=== PATIENT | male | born 1970 | race Caucasian/White ===

== ENCOUNTER 2018-10-07 12:13 | Emergency (ER) | payer MEDICAID ==
[~2018-10-07] VITALS: Ht 185.4 cm; Wt 92.9 kg
[~2018-10-07 12:13] MED LIST: NO HOME MEDS; [UNRECOGNIZED DRUG - OTHER]
[2018-10-07] MEDS ORDERED: ibuprofen tablet 400 MG TABLET PO ONE (12:35)
[2018-10-07 14:00] VITALS: BP 102/68
== END 2018-10-07 14:01 | disposition home or self-care (01) ==
LOC: ER 12:13
DX: S60.221A Contusion of right hand, initial encounter (principal); S80.02XA Contusion of left knee, initial encounter; F17.200 Nicotine dependence, unspecified, uncomplicated; F15.90 Other stimulant use, unspecified, uncomplicated; Z91.013 Allergy to seafood; Z79.899 Other long term (current) drug therapy; W22.8XXA Striking against or struck by other objects, initial encounter; Y93.89 Activity, other specified; Y92.89 Other specified places as the place of occurrence of the external cause; Y99.8 Other external cause status
CPT/HCPCS: 73130; 73564; 99283

== ENCOUNTER 2018-10-15 13:15 | Emergency (ER) | payer MEDICAID ==
[~2018-10-15] VITALS: Ht 185.4 cm; Wt 92.8 kg
[2018-10-15 13:16] VITALS: BP 120/77
--- NOTE | 2018-10-15 15:20 | NUR ---
PT FEET SOAKED WARM WATER BETADINE, PT DRIED FEET AND GIVEN CLEAN DRY SOCKS INSTRUCTED NOT TO WEAR BOOTS FOR AWHILE.
== END 2018-10-15 15:21 | disposition home or self-care (01) ==
LOC: ER 13:17
DX: S90.212A Contusion of left great toe with damage to nail, initial encounter (principal); S90.211A Contusion of right great toe with damage to nail, initial encounter; M79.671 Pain in right foot; M79.672 Pain in left foot; G89.29 Other chronic pain; F15.90 Other stimulant use, unspecified, uncomplicated; Z91.013 Allergy to seafood; Z79.899 Other long term (current) drug therapy; X58.XXXA Exposure to other specified factors, initial encounter; Y93.89 Activity, other specified; Y92.89 Other specified places as the place of occurrence of the external cause; Y99.8 Other external cause status
CPT/HCPCS: 99281

== ENCOUNTER 2018-12-31 14:30 | Emergency (ER) | payer MEDICAID ==
[~2018-12-31] VITALS: Ht 185.4 cm; Wt 90.0 kg
[2018-12-31 14:59] VITALS: BP 103/56
[2018-12-31] MEDS ORDERED: DOXY100C43 PO (16:12)
== END 2018-12-31 16:46 | disposition home or self-care (01) ==
LOC: ER 14:31
DX: L03.115 Cellulitis of right lower limb (principal); G89.29 Other chronic pain; F17.200 Nicotine dependence, unspecified, uncomplicated; F15.90 Other stimulant use, unspecified, uncomplicated; Z91.013 Allergy to seafood; Z79.899 Other long term (current) drug therapy
CPT/HCPCS: 99283

== ENCOUNTER 2019-01-14 17:54 | Emergency (ER) | payer MEDICAID ==
[~2019-01-14] VITALS: Ht 185.4 cm; Wt 82.0 kg
[2019-01-14 18:22] LABS: CLARITY,URINE TURBID (Clear); COLOR,URINE BROWN (Yellow); GLUCOSE, URINE NEGATIVE (Neg); KETONES,URINE TRACE mg/dl (Neg); LEUKOCYTE ESTERASE ,URINE TRACE (Neg); OCCULT BLOOD,URINE LARGE (Neg); PROTEIN,URINE 100 mg/dl (Neg)
[2019-01-14 18:26] LABS: UA COLLECTION TYPE NON-SPECIFIED
[2019-01-14 18:32] LABS: NITRITES, URINE NEGATIVE (Neg)
[2019-01-14] MEDS ORDERED: HYDROcodone/acetaminophen 5mg/325mg tablet PO ONE (18:45)
[2019-01-14] MEDS ORDERED: ondansetron 4mg rapidly disintigrating tab PO ONE (18:45)
[2019-01-14 18:57] LABS: BACTERIA,URINE 1+ /HPF (Neg); RBC,URINE TNTC /HPF (0-2); WBC,URINE 0-4 /HPF (0-4)
[2019-01-14 18:58] LABS: MUCUS STRANDS MODERATE /LPF (Neg); SQUAMOUS EPITHELIAL CELL,UR NONE SEEN /LPF (FEW)
[2019-01-14 19:06] LABS: BASOPHILS # (AUTO) 0.1 X10'3 (0-0.2); BASOPHILS % (AUTO) 1.1 % (0-1); EOSINOPHILS # (AUTO) 0.1 X10'3 (0-0.9); EOSINOPHILS % (AUTO) 1.8 % (0-6); HEMATOCRIT 39.2 % (42.0-52.0); HEMOGLOBIN 13.2 g/dl (14.0-17.9); LYMPHOCYTES # (AUTO) 2.1 X10'3 (1.1-4.8); LYMPHOCYTES % (AUTO) 25.9 % (21-51); MEAN CORPUSCULAR HEMOGLOBIN 29.8 PG (27.0-31.0); MEAN CORPUSCULAR HGB CONC 33.7 g/dL (33.0-36.5); MEAN CORPUSCULAR VOLUME 88.4 FL (78-98); MEAN PLATELET VOLUME 7.8 FL (7.4-10.4); MONOCYTES # (AUTO) 0.6 X10'3 (0-0.9); MONOCYTES % (AUTO) 7.4 % (2-12); NEUTROPHILS # (AUTO) 5.1 X10'3 (1.8-7.7); NEUTROPHILS % (AUTO) 63.8 % (42-75); PLATELET COUNT 246 X10'3 (140-440); RED BLOOD COUNT 4.44 X10'6 (4.70-6.10); RED CELL DISTRIBUTION WIDTH 13.3 % (11.5-14.5); WHITE BLOOD COUNT 8.1 X10'3 (4.5-11.0)
[2019-01-14 19:20] LABS: ALANINE AMINOTRANSFERASE 27 U/L (12-78); ALBUMIN 3.4 G/DL (3.4-5.0); ALKALINE PHOSPHATASE 63 IU/L (46-116); ANION GAP 6 (8-16); ASPARTATE AMINO TRANSFERASE 18 U/L (10-37); BILIRUBIN,TOTAL 0.5 MG/DL (0.1-1.0); BLOOD UREA NITROGEN 14 MG/DL (7-18); BUN/CREATININE RATIO 15.6 (5.4-32.0); CHLORIDE 106 MMOL/L (99-107); GLUCOSE 91 MG/DL (70-104); POTASSIUM 4.4 MMOL/L (3.5-5.1); SODIUM 140 MMOL/L (135-145); TOTAL CARBON DIOXIDE 28.1 MMOL/L (24-32); TOTAL PROTEIN 6.7 G/DL (6.4-8.2); eGFR 90 ML/MIN
[2019-01-14 20:01] LABS: URINE AMPHETAMINE SCREEN POSITIVE (Neg); URINE BARBITUATE SCREEN NEGATIVE (Neg); URINE BENZODIAZEPINES SCREEN NEGATIVE (Neg); URINE CANNABINOID SCREEN NEGATIVE (Neg); URINE COCAINE SCREEN NEGATIVE (Neg); URINE METHADONE SCREEN NEGATIVE (Neg); URINE OPIATE SCREEN NEGATIVE (Neg); URINE PHENCYCLIDINE SCREEN NEGATIVE (Neg)
[2019-01-14] MEDS ORDERED: ONDA8TAB6 PO (20:16)
[2019-01-14] MEDS ORDERED: FLO0.4C PO (20:16)
[2019-01-14] MEDS ORDERED: HYDR-3965 PO (20:16)
[2019-01-14 20:25] VITALS: BP 113/67
== END 2019-01-14 20:28 | disposition home or self-care (01) ==
LOC: ER 17:55
DX: N20.0 Calculus of kidney (principal); G89.29 Other chronic pain; F15.90 Other stimulant use, unspecified, uncomplicated; Z91.013 Allergy to seafood; Z79.899 Other long term (current) drug therapy
CPT/HCPCS: 36415; 74176; 80053; 80305; 81001; 85025; 87088; 99284

== ENCOUNTER 2019-01-21 17:47 | Emergency (ER) | payer MEDICAID ==
[~2019-01-21] VITALS: Ht 185.4 cm; Wt 86.4 kg
[~2019-01-21 17:47] MED LIST changes: +FLO0.4C PO; +HYDR-3965 PO; +ONDA8TAB6 PO
[2019-01-21 18:29] LABS: BASOPHILS # (AUTO) 0.1 X10'3 (0-0.2); BASOPHILS % (AUTO) 0.8 % (0-1); EOSINOPHILS % (AUTO) 0.5 % (0-6); HEMOGLOBIN 13.8 g/dl (14.0-17.9); LYMPHOCYTES # (AUTO) 1.7 X10'3 (1.1-4.8); LYMPHOCYTES % (AUTO) 21.2 % (21-51); MEAN CORPUSCULAR HGB CONC 33.5 g/dL (33.0-36.5); MEAN CORPUSCULAR VOLUME 89.4 FL (78-98); MEAN PLATELET VOLUME 8.6 FL (7.4-10.4); MONOCYTES # (AUTO) 0.6 X10'3 (0-0.9); MONOCYTES % (AUTO) 7.3 % (2-12); NEUTROPHILS # (AUTO) 5.8 X10'3 (1.8-7.7); NEUTROPHILS % (AUTO) 70.2 % (42-75); PLATELET COUNT 219 X10'3 (140-440); RED BLOOD COUNT 4.59 X10'6 (4.70-6.10); RED CELL DISTRIBUTION WIDTH 13.3 % (11.5-14.5); WHITE BLOOD COUNT 8.2 X10'3 (4.5-11.0)
[2019-01-21] MEDS ORDERED: ketorolac trometh. 30mg/ml inj. IV ONE (18:30)
[2019-01-21] MEDS ORDERED: normal saline 1000ML IV soln IVB ONE (18:30)
[2019-01-21 18:37] LABS: ALANINE AMINOTRANSFERASE 33 U/L (12-78); ALBUMIN 3.6 G/DL (3.4-5.0); ALKALINE PHOSPHATASE 69 IU/L (46-116); ANION GAP 9 (8-16); ASPARTATE AMINO TRANSFERASE 26 U/L (10-37); BILIRUBIN,TOTAL 0.3 MG/DL (0.1-1.0); BLOOD UREA NITROGEN 15 MG/DL (7-18); BUN/CREATININE RATIO 17.9 (5.4-32.0); CALCIUM 9.3 MG/DL (8.5-10.1); CHLORIDE 110 MMOL/L (99-107); CREATININE 0.84 MG/DL (0.60-1.10); GLUCOSE 106 MG/DL (70-104); SODIUM 146 MMOL/L (135-145); TOTAL CARBON DIOXIDE 27.3 MMOL/L (24-32); TOTAL PROTEIN 7.2 G/DL (6.4-8.2); eGFR > 90 ML/MIN
[2019-01-21 19:05] LABS: CLARITY,URINE CLOUDY (Clear); COLOR,URINE YELLOW (Yellow); GLUCOSE, URINE NEGATIVE (Neg); KETONES,URINE NEGATIVE (Neg); LEUKOCYTE ESTERASE ,URINE NEGATIVE (Neg); NITRITES, URINE NEGATIVE (Neg); OCCULT BLOOD,URINE MODERATE (Neg); PH,URINE 7.5 (4.8-8.0); PROTEIN,URINE NEGATIVE (Neg); UROBILINOGEN,URINE 0.2 E.U/dL (0.2-1.0)
[2019-01-21 19:10] LABS: UA COLLECTION TYPE CLN CATCH MIDSTREAM
[2019-01-21 19:26] LABS: WBC,URINE NONE SEEN /HPF (0-4)
[2019-01-21 19:27] LABS: AMORPHOUS PHOSPHATES 2+; BACTERIA,URINE NONE SEEN /HPF (Neg); MUCUS STRANDS NONE SEEN /LPF (Neg); SQUAMOUS EPITHELIAL CELL,UR NONE SEEN /LPF (FEW)
[2019-01-21] MEDS ORDERED: KETO10TA2 PO (20:07)
[2019-01-21] MEDS ORDERED: FLO0.4C PO (20:07)
[2019-01-21 20:27] VITALS: BP 124/74
== END 2019-01-21 20:14 | disposition home or self-care (01) ==
LOC: ER 17:47
DX: N20.0 Calculus of kidney (principal); G89.29 Other chronic pain; F15.90 Other stimulant use, unspecified, uncomplicated; Z91.013 Allergy to seafood; Z79.899 Other long term (current) drug therapy
CPT/HCPCS: 36415; 74176; 80053; 81001; 85025; 85610; 96374; 99284; J1885; J7030

== ENCOUNTER 2019-01-29 11:46 | Emergency (ER) | payer MEDICAID ==
[~2019-01-29] VITALS: Ht 185.4 cm; Wt 64.0 kg
[~2019-01-29 11:46] MED LIST changes: +KETO10TA2 PO
[2019-01-29 12:21] VITALS: BP 103/69
[2019-01-29] MEDS ORDERED: HYDROcodone/acetaminophen 10/325mg tab PO ONE (14:05)
[2019-01-29] MEDS ORDERED: PENI500T2 PO (14:12)
[2019-01-29] MEDS ORDERED: IBUP-1984 PO (14:12)
== END 2019-01-29 14:23 | disposition home or self-care (01) ==
LOC: ER 11:47
DX: K04.7 Periapical abscess without sinus (principal); G89.29 Other chronic pain; F15.90 Other stimulant use, unspecified, uncomplicated; Z87.442 Personal history of urinary calculi; Z91.013 Allergy to seafood; Z88.0 Allergy status to penicillin; Z79.899 Other long term (current) drug therapy
CPT/HCPCS: 99283

== ENCOUNTER 2019-03-20 11:46 | Inpatient (IN) | payer MEDICAID ==
[~2019-03-20] VITALS: Ht 185.4 cm; Wt 97.7 kg
[~2019-03-20 11:46] MED LIST changes: -FLO0.4C PO; -HYDR-3965 PO
[2019-03-20] MEDS ORDERED: ketorolac trometh. 30mg/ml inj. IV ONE (12:40)
[2019-03-20] MEDS ORDERED: ondansetron/PF 4mg/2ml inj IV ONE (12:40)
[2019-03-20] MEDS ORDERED: normal saline 1000ML IV soln IVB ONE ×2 (12:40→14:20)
[2019-03-20 13:03] LABS: CLARITY,URINE CLEAR (Clear); COLOR,URINE YELLOW (Yellow); GLUCOSE, URINE NEGATIVE (Neg); KETONES,URINE NEGATIVE (Neg); LEUKOCYTE ESTERASE ,URINE NEGATIVE (Neg); NITRITES, URINE NEGATIVE (Neg); OCCULT BLOOD,URINE SMALL (Neg); PROTEIN,URINE NEGATIVE (Neg); UROBILINOGEN,URINE 0.2 E.U/dL (0.2-1.0)
[2019-03-20 13:05] LABS: UA COLLECTION TYPE VOIDED
[2019-03-20 13:09] LABS: BACTERIA,URINE FEW /HPF (Neg); SQUAMOUS EPITHELIAL CELL,UR FEW /LPF (FEW); WBC,URINE 0-4 /HPF (0-4)
[2019-03-20 13:10] LABS: MUCUS STRANDS MODERATE /LPF (Neg)
[2019-03-20 13:23] LABS: BASOPHILS # (AUTO) 0.1 X10'3 (0-0.2); BASOPHILS % (AUTO) 1.3 % (0-1); EOSINOPHILS # (AUTO) 0.1 X10'3 (0-0.9); EOSINOPHILS % (AUTO) 1.7 % (0-6); HEMATOCRIT 39.8 % (42.0-52.0); HEMOGLOBIN 13.4 g/dl (14.0-17.9); LYMPHOCYTES % (AUTO) 24.2 % (21-51); MEAN CORPUSCULAR HEMOGLOBIN 29.8 PG (27.0-31.0); MEAN CORPUSCULAR HGB CONC 33.7 g/dL (33.0-36.5); MEAN CORPUSCULAR VOLUME 88.2 FL (78-98); MEAN PLATELET VOLUME 7.7 FL (7.4-10.4); MONOCYTES # (AUTO) 0.5 X10'3 (0-0.9); MONOCYTES % (AUTO) 6.7 % (2-12); NEUTROPHILS # (AUTO) 5.3 X10'3 (1.8-7.7); NEUTROPHILS % (AUTO) 66.1 % (42-75); PLATELET COUNT 291 X10'3 (140-440); RED BLOOD COUNT 4.51 X10'6 (4.70-6.10); RED CELL DISTRIBUTION WIDTH 13.2 % (11.5-14.5); WHITE BLOOD COUNT 8.1 X10'3 (4.5-11.0)
[2019-03-20 13:39] LABS: ALANINE AMINOTRANSFERASE 24 U/L (12-78); ALBUMIN 3.3 G/DL (3.4-5.0); ALBUMIN/GLOBULIN RATIO 0.8 (1.1-1.5); ALKALINE PHOSPHATASE 82 IU/L (46-116); ANION GAP 4 (8-16); ASPARTATE AMINO TRANSFERASE 20 U/L (10-37); BILIRUBIN,TOTAL 0.3 MG/DL (0.1-1.0); BLOOD UREA NITROGEN 9 MG/DL (7-18); BUN/CREATININE RATIO 10.2 (5.4-32.0); CALCIUM 9.2 MG/DL (8.5-10.1); CHLORIDE 107 MMOL/L (99-107); CREATININE 0.88 MG/DL (0.60-1.10); GLUCOSE 78 MG/DL (70-104); LIPASE 120 U/L (73-393); POTASSIUM 4.1 MMOL/L (3.5-5.1); SODIUM 141 MMOL/L (135-145); TOTAL CARBON DIOXIDE 29.7 MMOL/L (24-32); TOTAL PROTEIN 7.7 G/DL (6.4-8.2); eGFR > 90 ML/MIN
[2019-03-20] MEDS ORDERED: CEPH-572 PO (14:19)
[2019-03-20] MEDS ORDERED: SULF1TAB49 PO (14:19)
--- NOTE | 2019-03-20 14:19 | NUR ---
LAB WILL RUN URINE FROM PREVIOUS COLLECTION
[2019-03-20] MEDS ORDERED: normal saline 1000ml 1,000 ML IV SCH (14:21)
[2019-03-20] MEDS ORDERED: magnesium 2GM in 50ml NS 50 ML IV PRN (14:25)
[2019-03-20] MEDS ORDERED: HYDROcodone/acetaminophen 5mg/325mg tablet PO PRN (14:25)
[2019-03-20] MEDS ORDERED: ondansetron/PF 4mg/2ml inj IV PRN ×2 (14:25→15:30)
[2019-03-20] MEDS ORDERED: magnesium 4gm in 100ml NS 100 ML IV PRN (14:25)
[2019-03-20] MEDS ORDERED: magnesium Cl slow-release 64mg tablet PO PRN (14:25)
[2019-03-20] MEDS ORDERED: HYDROcodone/acetaminophen 10/325mg tab PO PRN (14:25)
[2019-03-20] MEDS ORDERED: potassium Cl 20 mEq SR tablet PO PRN ×2 (14:25)
[2019-03-20] MEDS ORDERED: potassium CL 10mEq/100ml bag 100 ML IV PRN ×2 (14:25)
[2019-03-20] MEDS ORDERED: acetaminophen 325mg tablet PO PRN ×2 (14:25)
[2019-03-20 14:33] LABS: URINE AMPHETAMINE SCREEN POSITIVE (Neg); URINE BARBITUATE SCREEN NEGATIVE (Neg); URINE BENZODIAZEPINES SCREEN NEGATIVE (Neg); URINE CANNABINOID SCREEN NEGATIVE (Neg); URINE COCAINE SCREEN NEGATIVE (Neg); URINE METHADONE SCREEN NEGATIVE (Neg); URINE OPIATE SCREEN NEGATIVE (Neg); URINE PHENCYCLIDINE SCREEN NEGATIVE (Neg)
--- NOTE | 2019-03-20 14:46 | NUR ---
SPOKE WITH ALICIA OCAMPOLEVER TENDER, PATIENT LAST PO INTAKE AT 0700 TODAY: HE DRANK 1 LITER OF WATER, NO FOOD INTAKE SINCE LAST NIGHT 03/19/19: SHE IS AWARE THAT PATIENT HAD AN EKG, RIGHT FOREARM 20 GAUGE PIV WITH NS RUNNING
--- NOTE | 2019-03-20 14:50 | NUR ---
ASKED FLOAT DAMARIS DONOVAN AND ALIX VEGA TO ASSIST PATIENT IN REMOVING HIS CLOTHES AND DOCUMENTING HIS BELONGINGS: PATIENT HAS A FULL PACKPACK PATIENT IS GOING TO THE OR WITH DR BERMAN PER SURGICAL NURSE ALICIA
--- NOTE | 2019-03-20 15:05 | NUR ---
NO ORDER FOR CONSENT FOR SURGERY, NO BLOOD AVAILABLE, NO CROSSMATCH/NO TYPE AND SCREEN: ALICIA OCAMPOAR MANAGER AWARE
[2019-03-20] MEDS ORDERED: iohexol 300 MG/1 ML 50ml polymer ONE (15:08)
--- NOTE | 2019-03-20 15:12 | NUR ---
TECH DID NOT DO BELONGING LIST: PATIENT IS WEARING HIS READERS, AND STATED THAT HE HAS A WALLET NO LANDEROS, 2 CELL PHONES WITH CHARGERS AND CLOTHING AND PERSONAL BELONGINGS
--- NOTE | 2019-03-20 15:12 | NUR ---
EMERGENCY CONTACT: MAHENDRA [phone]
--- NOTE | 2019-03-20 15:17 | NUR ---
OR TECH PICKED UP PATIENT WILL ALL BELONGINGS
[2019-03-20] MEDS ORDERED: ringers solution, lacted 1,000 ML IV SCH (15:29)
[2019-03-20] MEDS ORDERED: proCHLORperazine 10 MG/2 ml inj IV PRN (15:30)
[2019-03-20] MEDS ORDERED: meperidine/PF 25mg/ml syringe IV PRN ×3 (15:30)
[2019-03-20] MEDS ORDERED: morphine 4 MG/ML inj SYRINge IV PRN ×2 (15:30)
[2019-03-20] MEDS ORDERED: fentaNYL/PF 50MCG/1 ML 2ML syringe ONE (15:38)
[2019-03-20] MEDS ORDERED: propofol inj 20 ML IV ONE (15:38)
[2019-03-20] MEDS ORDERED: sevoflurane 250ml liquid IH ONE (15:38)
[2019-03-20] MEDS ORDERED: midazolam 2 mg/2 ml injection ONE (15:38)
[2019-03-20 16:30] VITALS: BP 137/36
--- NOTE | 2019-03-20 16:30 | NUR ---
Received from OR via CHARLIE , accompanied by Anesthesiologist SHERRY and report given by Anesthesiolgist. PATIENT WITH 20G PIV IN RIGHT UE RUNNING LR AT 100. DENIES PAIN. VSS. 10L MASK ON WITH 100% SATURATIONS. Addendum: 03/20/19 at 1635 by Lam James RN, RN Amended: Links added.
[2019-03-20 16:40] VITALS: BP 142/78
[2019-03-20 16:50] VITALS: BP 132/80
[2019-03-20 17:00] VITALS: BP 127/85
[2019-03-20 17:10] VITALS: BP 125/89
[2019-03-20 17:20] VITALS: BP 142/78
--- NOTE | 2019-03-20 17:30 | NUR ---
ALL DC CRITERIA HAS BEEN MET. IV TAKEN OUT WITHOUT COMPLICATIONS. ALL INSTRUCTIONS COVERED AND ALL QUESTIONS ANSWERED. OUT VIA WHEELCHAIR TO FRONT OF HOSPITAL WHERE HE WALKED OFF IN HIS DESIRED DIRECTION. Addendum: 03/20/19 at 1749 by Lam James RN, RN Amended: Links added.
[2019-03-20] MEDS ORDERED: docusate sod 100mg capsule PO SCH (20:00)
[2019-03-20] MEDS ORDERED: heparin, porcine 5000 units/ml vial SQ SCH (20:00)
[2019-03-20] MEDS ORDERED: temazepam 15mg capsule PO PRN (21:00)
[2019-03-21] MEDS ORDERED: CefTRIAXone 2gm/D5W 50ml 50 ML IV SCH (08:00)
[2019-03-21] MEDS ORDERED: K and/or MAG REPLACEMENT MC SCH (08:00)
== END 2019-03-20 17:45 | disposition home or self-care (01) | DRG 446 ==
LOC: ER 11:47 → ED HOLD 14:33
PROVIDERS: ADMIT Internal Medicine; ATTEND Internal Medicine
PROC: 0T778DZ Dilation of Left Ureter with Intraluminal Device, Via Natural or Artificial Opening Endoscopic (ICD-10-PCS; 2019-03-20)
PROC: BT1F1ZZ Fluoroscopy of Left Kidney, Ureter and Bladder using Low Osmolar Contrast (ICD-10-PCS; 2019-03-20)
PROC: 0TC78ZZ Extirpation of Matter from Left Ureter, Via Natural or Artificial Opening Endoscopic (ICD-10-PCS; principal; 2019-03-20 15:38)
DX: N13.2 Hydronephrosis with renal and ureteral calculous obstruction (principal); I95.9 Hypotension, unspecified; F15.90 Other stimulant use, unspecified, uncomplicated; F17.210 Nicotine dependence, cigarettes, uncomplicated; I10 Essential (primary) hypertension; N52.9 Male erectile dysfunction, unspecified; G89.29 Other chronic pain; M54.9 Dorsalgia, unspecified; Z87.442 Personal history of urinary calculi; Z91.013 Allergy to seafood
CPT/HCPCS: 36415; 74176; 76000; 80053; 80305; 81001; 83605; 83690; 85025; 87040; 93005; 96375; 99285; A4402; A4618; C1758; C1769; C2617; G0378; J1885; J2250; J2405; J2704; J3010; J7120; Q9967

== ENCOUNTER 2019-03-22 10:44 | Emergency (ER) | payer MEDICAID ==
[~2019-03-22] VITALS: Ht 185.4 cm; Wt 81.0 kg
[~2019-03-22 10:44] MED LIST changes: -KETO10TA2 PO; -ONDA8TAB6 PO; -[UNRECOGNIZED DRUG - OTHER]
--- NOTE | 2019-03-22 11:02 | NUR ---
PATIENT HAD STENT PLACED IN RIGHT KIDNEY ON 03/20/19 AND IS STILL HAVING LEFT FLANK PAIN.
[2019-03-22 11:56] LABS: BASOPHILS # (AUTO) 0.1 X10'3 (0-0.2); EOSINOPHILS # (AUTO) 0.1 X10'3 (0-0.9); MONOCYTES # (AUTO) 0.6 X10'3 (0-0.9)
[2019-03-22 11:57] LABS: BASOPHILS % (AUTO) 0.8 % (0-1); EOSINOPHILS % (AUTO) 1.4 % (0-6); HEMOGLOBIN 13.7 g/dl (14.0-17.9); LYMPHOCYTES # (AUTO) 1.9 X10'3 (1.1-4.8); LYMPHOCYTES % (AUTO) 21.4 % (21-51); MEAN CORPUSCULAR HEMOGLOBIN 29.7 PG (27.0-31.0); MEAN CORPUSCULAR HGB CONC 33.5 g/dL (33.0-36.5); MEAN CORPUSCULAR VOLUME 88.7 FL (78-98); MEAN PLATELET VOLUME 7.9 FL (7.4-10.4); NEUTROPHILS % (AUTO) 69.4 % (42-75); PLATELET COUNT 275 X10'3 (140-440); RED BLOOD COUNT 4.62 X10'6 (4.70-6.10); RED CELL DISTRIBUTION WIDTH 13.1 % (11.5-14.5); WHITE BLOOD COUNT 8.6 X10'3 (4.5-11.0)
[2019-03-22 12:09] LABS: ALANINE AMINOTRANSFERASE 28 U/L (12-78); ALBUMIN 3.2 G/DL (3.4-5.0); ALBUMIN/GLOBULIN RATIO 0.8 (1.1-1.5); ALKALINE PHOSPHATASE 79 IU/L (46-116); ANION GAP 9 (8-16); ASPARTATE AMINO TRANSFERASE 24 U/L (10-37); BILIRUBIN,TOTAL 0.3 MG/DL (0.1-1.0); BLOOD UREA NITROGEN 10 MG/DL (7-18); BUN/CREATININE RATIO 10.9 (5.4-32.0); CALCIUM 9.2 MG/DL (8.5-10.1); CHLORIDE 107 MMOL/L (99-107); CREATININE 0.92 MG/DL (0.60-1.10); GLUCOSE 80 MG/DL (70-104); MAGNESIUM 1.7 MG/DL (1.5-2.4); SODIUM 144 MMOL/L (135-145); TOTAL CARBON DIOXIDE 28.2 MMOL/L (24-32); TOTAL PROTEIN 7.4 G/DL (6.4-8.2); eGFR 88 ML/MIN
--- NOTE | 2019-03-22 12:10 | NUR ---
Pt asked about providing a urine specimen and he reports he just voided and was not asked for a sample by other staff. Reporting nurse reports the patient was unwilling/unable to provide a specimen. Dr. Laughlin gave the patient some food at this time.
[2019-03-22] MEDS ORDERED: oxybutynin 5mg tablet PO ONE (12:25)
[2019-03-22] MEDS ORDERED: tamsulosin 0.4mg capsule PO ONE (12:25)
[2019-03-22] MEDS ORDERED: phenazopyridine 100mg tablet PO ONE (12:25)
[2019-03-22] MEDS ORDERED: HYDROcodone/acetaminophen 5mg/325mg tablet PO ONE (12:35)
[2019-03-22 12:43] LABS: CLARITY,URINE SLIGHTLY CLOUDY (Clear); COLOR,URINE YELLOW (Yellow); GLUCOSE, URINE NEGATIVE (Neg); KETONES,URINE NEGATIVE (Neg); LEUKOCYTE ESTERASE ,URINE NEGATIVE (Neg); NITRITES, URINE NEGATIVE (Neg); OCCULT BLOOD,URINE LARGE (Neg); PH,URINE 8.5 (4.8-8.0); PROTEIN,URINE 30 mg/dl (Neg)
[2019-03-22 12:44] LABS: UA COLLECTION TYPE CLN CATCH MIDSTREAM
[2019-03-22] MEDS ORDERED: HYDR-3965 PO (12:55)
[2019-03-22] MEDS ORDERED: PHEN-824 PO (12:55)
[2019-03-22] MEDS ORDERED: OXYB5TAB16 PO (12:55)
[2019-03-22] MEDS ORDERED: FLO0.4C PO (12:55)
[2019-03-22 13:07] VITALS: BP 104/88
[2019-03-22 13:09] LABS: MUCUS STRANDS FEW /LPF (Neg); SQUAMOUS EPITHELIAL CELL,UR FEW /LPF (FEW)
[2019-03-22 13:10] LABS: RBC,URINE TNTC /HPF (0-2)
[2019-03-22 13:12] LABS: BACTERIA,URINE FEW /HPF (Neg); WBC,URINE 0-4 /HPF (0-4)
== END 2019-03-22 13:16 | disposition home or self-care (01) ==
LOC: ER 10:44
DX: R10.9 Unspecified abdominal pain (principal); G89.29 Other chronic pain; F15.90 Other stimulant use, unspecified, uncomplicated; Z87.442 Personal history of urinary calculi; Z91.013 Allergy to seafood; Z79.899 Other long term (current) drug therapy
CPT/HCPCS: 36415; 80053; 81001; 83605; 83735; 84145; 85025; 87040; 99284

== ENCOUNTER 2020-04-14 19:57 | Emergency (ER) | payer MEDICAID ==
[~2020-04-14] VITALS: Ht 185.4 cm; Wt 90.9 kg
[~2020-04-14 19:57] MED LIST changes: +OXYB5TAB16 PO; +PHEN-824 PO
== END 2020-04-14 20:47 | disposition home or self-care (01) ==
LOC: ER 19:58
DX: R05 Cough (principal); R51.9 Headache, unspecified; M79.10 Myalgia, unspecified site; G89.29 Other chronic pain; M54.9 Dorsalgia, unspecified; F12.10 Cannabis abuse, uncomplicated; Z91.013 Allergy to seafood; Z87.442 Personal history of urinary calculi; Z20.828 Contact with and (suspected) exposure to other viral communicable diseases
CPT/HCPCS: 36415; 87635; 99283

== ENCOUNTER 2022-08-01 12:24 | Emergency (ER) | payer MEDICAID ==
[~2022-08-01] VITALS: Ht 185.4 cm; Wt 71.8 kg
[2022-08-01 12:42] VITALS: BP 112/87
[2022-08-01] MEDS ORDERED: acetaminophen w/codeine (30MG) #3 tablet PO ONE (15:50)
[2022-08-01] MEDS ORDERED: OXYC-145 PO (16:48)
== END 2022-08-01 17:01 | disposition home or self-care (01) ==
LOC: ER 12:25
DX: S22.42XA Multiple fractures of ribs, left side, initial encounter for closed fracture (principal); G89.29 Other chronic pain; F17.200 Nicotine dependence, unspecified, uncomplicated; F15.90 Other stimulant use, unspecified, uncomplicated; Z98.890 Other specified postprocedural states; Z87.442 Personal history of urinary calculi; Z91.013 Allergy to seafood; Z79.899 Other long term (current) drug therapy; X58.XXXA Exposure to other specified factors, initial encounter; Y93.89 Activity, other specified; Y92.89 Other specified places as the place of occurrence of the external cause; Y99.8 Other external cause status
CPT/HCPCS: 71101; 99283